=== PATIENT | female | born 1970 | race Caucasian/White ===

== ENCOUNTER 2017-10-19 12:24 | Day surgery (SDC) | payer OTHER ==
[~2017-10-19 12:24] MED LIST: Buffered Lidocaine 0.9% SYRIN* 5 ML/SYR SYRINGE INTRADERM ONE
[2017-10-19] MEDS ORDERED: fentaNYL* 50 MCG/ML 2 ML VIAL (100 MCG VIAL) ONE (13:37)
[2017-10-19] MEDS ORDERED: Midazolam* 1 MG/ML 2 ML VIAL (2 MG) ONE (13:37)
[2017-10-19] MEDS ORDERED: Ondansetron ODT TAB* 4 MG ONE (13:46)
[2017-10-19] MEDS ORDERED: Propofol* 10 MG/ML 20 ML BTL IV PUSH ONE (14:15)
[2017-10-19] MEDS ORDERED: DiMENhydriNATE IV* 50 MG/ML VIAL IV PUSH PRN (14:45)
[2017-10-19] MEDS ORDERED: Naloxone* 0.4 MG/ML 1 ML VIAL IV PRN (14:45)
[2017-10-19 15:43] VITALS: BP 96/64
--- NOTE | 2017-10-20 07:59 | PRO ---
CC: Dr. Lydia Hogan GASTROENTEROLOGY PROCEDURE NOTE: DATE OF PROCEDURE: 10/19/17 REFERRING PHYSICIAN: Dr. Lydia Hogan. PROCEDURE: Colonoscopy to cecum with snare polypectomy. PREOPERATIVE DIAGNOSES: A 46-year-old female with a personal history of colon polyps and a first-deg ree family history of colon cancer. The patient did undergo incomplete colonoscopy on 09/28/17 due t o discomfort. The patient had not wanted to receive any narcotics and exam was unable to be complete d. She now returns for complete colonoscopy with anesthesia-assisted propofol. POSTOPERATIVE DIAGNOSES: 1. An 8-mm sessile polyp at the base of the cecum, status post piecemeal resection with cold snare p olypectomy with complete resection and retrieval. Endoclip was then applied to the site for some mil d oozing. 2. Tortuous colon throughout. 3. Internal hemorrhoids. PROCEDURE MEDICATIONS: Per Anesthesia. INSTRUMENT: PCF-190 Olympus variable high-definition pediatric colonoscope. DESCRIPTION OF PROCEDURE: Informed consent was obtained prior to performing this procedure. The ins trument was introduced into the anus and passed through the rectum under direct visualization. The i nstrument was then advanced up to the cecum. The cecum was confirmed by visualization of the appendi ceal orifice, ileocecal valve, and tri-folds of the cecum. In the base of the cecum, there was an 8- mm sessile polyp. This was removed via piecemeal cold snare polypectomy with complete resection and retrieval. Endoclip was applied to the site for some mild oozing. The colonoscope was slowly withdr awn. The preparation was excellent. The mucosa of the ascending colon, transverse colon, descending colon, sigmoid colon and rectum was normal. Internal hemorrhoids were visualized in the rectum on d irect and retroflex view. Digital examination was normal. The patient tolerated the procedure well and there were no complications. RECOMMENDATIONS: I think given the fact that the patient has had cecal polyps in the past and that s he has this now 8 mm polyp that she should undergo followup colonoscopy in 2 years for visualization of the site. I will notify her of pathology results in 1 week. [id number]/[facility] #: [id number]
== END 2017-10-19 15:54 | disposition home or self-care (01) ==
LOC: OR 12:24
PROVIDERS: ATTEND Internal Medicine
DX: Z12.11 Encounter for screening for malignant neoplasm of colon (principal); K63.5 Polyp of colon; K64.8 Other hemorrhoids; Z80.0 Family history of malignant neoplasm of digestive organs; Z86.010 Personal history of colon polyps; E03.9 Hypothyroidism, unspecified; G43.909 Migraine, unspecified, not intractable, without status migrainosus; F41.9 Anxiety disorder, unspecified
CPT/HCPCS: 81025; 88305; A9270-GY; J2250; J2704; J3010